=== PATIENT | male | born 1980 | race Caucasian/White ===

== ENCOUNTER 2017-10-07 18:28 | Emergency (ER) | payer BC ==
[~2017-10-07] VITALS: Ht 182.9 cm; Wt 106.0 kg
[2017-10-07 18:32] VITALS: Ht 182.9 cm; Wt 106.0 kg
[2017-10-07] MEDS ORDERED: LIDOCAINE/EPINEPHRINE 1% 20 ML VIAL INFIL STA (18:46)
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
[2017-10-07 19:43] VITALS: BP 142/71; PULSE 82; TEMP 37; O2SAT 98
== END 2017-10-07 19:44 | disposition home or self-care (01) ==
LOC: C.EDB 18:30 → C.EDD 19:44
DX: S01.81XA Laceration without foreign body of other part of head, initial encounter (principal); W22.8XXA Striking against or struck by other objects, initial encounter